=== PATIENT | male | born 1970 | race Caucasian/White ===

== ENCOUNTER 2021-02-04 08:59 | Emergency (ER) | payer BC ==
[~2021-02-04] VITALS: Ht 182.9 cm; Wt 159.0 kg
[2021-02-04] MEDS ORDERED: IV NORMAL SALINE 1,000ML 1,000 ML IV ONE (09:30)
[2021-02-04] MEDS ORDERED: ONDANSETRON PF 4 MG/2 ML VIAL. IVP ONE (09:30)
[2021-02-04] MEDS ORDERED: IOHEXOL 350 MG/ML 100 ML VIAL. IV ONE (09:45)
--- NOTE | 2021-02-04 09:48 | PHYS DOC ---
Past History Past Medical History: Hypertension Past Surgical History: Cholecystectomy, Other Additional Past Surgical Histo: knee surgery Smoking: Non-smoker Alcohol Use: None Drug Use: None General Adult EDM: Chief Complaint: NAUSEA/VOMITING/DIARRHEA HPI: HPI: Patient is a 50-year-old male that presents today with coughing up blood or vomiting blood. Patient states he woke up this morning and he vomited blood, unknown amount he states he is unable to look at the blood because he will pass out patient states that prior to today's incident he has been in normal health. Patient states that he has not seen his primary care doctor Dr. Santana in the last 3 or 4 years, he says he has a history of hypertension for which he gets he takes metoprolol for, he also has an eye issue that is being managed by an software validation engineer on an outpatient basis. Patient states he is also had body aches and pains, denies fever or cough, patient does state that he did have a fluttering feeling in his chest this morning and was concerned with that. Patient has had all of his Covid vaccines and flu shot. Review of Systems: Review of Systems: Constitutional: Denies fever or chills Eyes: Denies change in visual acuity HENT: Denies nasal congestion or sore throat Respiratory: Denies cough or shortness of breath Cardiovascular: Chest flutter GI: Vomiting blood : Denies dysuria Musculoskeletal: Body aches, low back pain Integument: Denies rash Neurologic: Denies headache, focal weakness or sensory changes Endocrine: Denies polyuria or polydipsia Lymphatic: Denies swollen glands Psychiatric: Denies depression or anxiety Current Medications: Current Meds: Current Medications Medications (Trade) Dose Ordered Sig/Esvin Start Time Stop Time Status Last Admin Dose Admin Iohexol (Omnipaque 350 Mg/ml) 100 ml 1X ONCE 02/04/21 09:45 02/04/21 09:46 UNV Ondansetron HCl (Zofran) 4 mg 1X ONCE 02/04/21 09:30 02/04/21 09:31 UNV Sodium Chloride 1,000 ml @ 1,000 mls/hr 1X ONCE 02/04/21 09:30 02/04/21 10:29 UNV Physical Exam: PE: Constitutional: Well developed, obese, mild distress, non-toxic appearance. [] HENT: Normocephalic, atraumatic, bilateral external ears normal, oropharynx moist, no oral exudates, nose normal. [] Eyes: PERRLA, EOMI, conjunctiva normal, no discharge. [] Neck: Normal range of motion, no tenderness, supple, no stridor. [] Cardiovascular:Heart rate regular rhythm, no murmur [] Lungs & Thorax: Bilateral breath sounds clear to auscultation [] Abdomen: Bowel sounds normal, patient has pain with palpation of the right upper quadrant, Skin: Warm, moist, no erythema, no rash. [] Back: Tenderness low back [] Extremities: Trace pedal edema noted, posterior tibialis pulses 2+ bilaterally Neurologic: Alert and oriented X 3, normal motor function, normal sensory function, no focal deficits noted. [] Psychologic: Affect normal, judgement normal, mood anxious. [] Current Patient Data: Labs: Laboratory Tests Test 02/04/21 09:33 02/04/21 11:11 White Blood Count 9.5 x10^3/uL Red Blood Count 4.83 x10^6/uL Hemoglobin 14.4 g/dL Hematocrit 42.9 % Mean Corpuscular Volume 89 fL Mean Corpuscular Hemoglobin 30 pg Mean Corpuscular Hemoglobin Concent 34 g/dL Red Cell Distribution Width 13.4 % Platelet Count 339 x10^3/uL Neutrophils (%) (Auto) 65 % Lymphocytes (%) (Auto) 25 % Monocytes (%) (Auto) 7 % Eosinophils (%) (Auto) 1 % Basophils (%) (Auto) 1 % Neutrophils # (Auto) 6.2 x10^3uL Lymphocytes # (Auto) 2.4 x10^3/uL Monocytes # (Auto) 0.7 x10^3/uL Eosinophils # (Auto) 0.1 x10^3/uL Basophils # (Auto) 0.1 x10^3/uL Sodium Level 143 mmol/L Potassium Level 3.3 mmol/L Chloride Level 106 mmol/L Carbon Dioxide Level 25 mmol/L Anion Gap 12 Blood Urea Nitrogen 8 mg/dL Creatinine 0.9 mg/dL Estimated GFR (Cockcroft-Gault) 89.3 BUN/Creatinine Ratio 9 Glucose Level 125 mg/dL Calcium Level 8.4 mg/dL Total Bilirubin 0.4 mg/dL Aspartate Amino Transf (AST/SGOT) 14 U/L Alanine Aminotransferase (ALT/SGPT) 30 U/L Alkaline Phosphatase 109 U/L Troponin I High Sensitivity 17 ng/L Total Protein 7.5 g/dL Albumin 3.6 g/dL Albumin/Globulin Ratio 0.9 Lipase 73 U/L Urine Collection Type Unknown Urine Color Yellow Urine Clarity Clear Urine pH 6.5 Urine Specific Clare 1.020 Urine Protein 100 mg/dl Urine Glucose (UA) Neg mg/dL Urine Ketones (Stick) Neg mg/dL Urine Blood Neg Urine Nitrite Neg Urine Bilirubin Neg Urine Urobilinogen Dipstick 0.2 mg/dL Urine Leukocyte Esterase Neg Urine RBC 1-2 /HPF Urine WBC 1-4 /HPF Urine Squamous Epithelial Cells None /LPF Urine Bacteria 0 /HPF Urine Mucus Slight /LPF Current Medications Medications (Trade) Dose Ordered Sig/Esvin Route PRN Reason Start Time Stop Time Status Last Admin Dose Admin Sodium Chloride 1,000 ml @ 1,000 mls/hr 1X ONCE IV 02/04/21 09:30 02/04/21 10:29 DC 02/04/21 09:37 Ondansetron HCl (Zofran) 4 mg 1X ONCE IVP 02/04/21 09:30 02/04/21 09:57 DC 02/04/21 10:57 Iohexol (Omnipaque 350 Mg/ml) 100 ml 1X ONCE IV 02/04/21 09:45 02/04/21 09:57 DC 02/04/21 10:13 Ketorolac Tromethamine (Toradol 30mg Vial) 30 mg 1X ONCE IVP 02/04/21 10:45 02/04/21 10:46 DC 02/04/21 10:58 Labetalol HCl (Normodyne) 20 mg 1X ONCE IVP 02/04/21 10:45 02/04/21 10:46 DC 02/04/21 10:58 Vital Signs: Vital Signs Date Time Temp Pulse Resp B/P (MAP) Pulse Ox O2 Delivery O2 Flow Rate FiO2 02/04/21 11:28 90 18 181/127 (145) 100 Room Air 02/04/21 11:22 70 18 124/64 (84) 100 Room Air 02/04/21 10:58 86 193/133 02/04/21 09:56 97.7 100 20 181/125 (143) 94 Room Air EKG: EKG: EKG done at [address] Tinsley at 920 sinus rhythm noted rate of 90 no STEMI OH interval is 156 ms with a QT interval of 457 ms [] Radiology/Procedures: Radiology/Procedures: REASON: chest, abd pain OMNI 350 100CC PROCEDURE: CT ANGIO CHEST W ABD PEL W/ CTA scan of the Chest with Contrast (Pulmonary Embolism protocol) 02/04/2021 Clinical History: Chest pain Technique: After the intravenous administration of 100 cc of Omnipaque 350, contiguous, 0.625 mm axial sections were obtained through the chest. 2 mm axial and 3D MIP coronal and sagittal reconstructed images were obtained. One or more of the following individualized dose reduction techniques were utilized for this study: 1. Automated exposure control. 2. Adjustment of the mA and/or kV according to patient size. 3. Use of iterative reconstruction technique. Findings: No filling defect is seen within the major branches of either pulmonary artery. There is no CT evidence of pulmonary embolism. The heart is mildly enlarged. Scattered atherosclerotic calcification of the thoracic aorta and its branches is seen. The thoracic aorta is mildly tortuous but tapers normally. Minimal dependent subsegmental atelectasis is seen involving both lungs. No area of consolidation, pleural effusion or pneumothorax is seen. Impression: There is no CT evidence of pulmonary embolism. CT scan of the abdomen and pelvis with contrast 02/04/2021 CLINICAL HISTORY: Abdominal pain TECHNIQUE: After the intravenous administration of 100 cc of Omnipaque 350 only, contiguous, 3 mm axial sections were obtained through the abdomen and pelvis. One or more of the following individualized dose reduction techniques were utilized for this study: 1. Automated exposure control. 2. Adjustment of the mA and/or kV according to patient size. 3. Use of iterative reconstruction technique. FINDINGS: Images through the lung bases demonstrate mild cardiomegaly. Minimal dependent subsegmental atelectasis is seen involving both lower lobes. The spleen, pancreas, and adrenal glands are within normal limits. The liver is mildly enlarged measuring 25 cm in length. Decreased attenuation liver parenchyma seen consistent with fatty infiltration. Rounded low-attenuation lesions are seen involving the left lobe of the liver consistent with hepatic cysts. These measure 7 mm in size. Nonobstructing calculi are seen involving the left kidney. These measure 5 to 7 mm . Rounded low-attenuation lesions are seen involving the midpole the right kidney which measure 3 to 5 mm in size. These likely represent cysts. No further imaging evaluation is recommended. Mild atherosclerotic calcification abdominal aorta and its branches is seen. The abdominal aorta tapers normally. Surgical clips are seen within the gallbladder fossa consistent with a cholecystectomy. No free fluid or free air is seen within the abdomen. There is no evidence of bowel obstruction. Air and stool are seen throughout the colon. The appendix is well-visualized and is within normal limits. Images through pelvis demonstrate the urinary bladder distended with urine. No free fluid is seen. Minimal S-shaped curvature of the thoracolumbar spine is seen. Degenerative changes are seen involving mid and lower lumbar spine along with both hips. IMPRESSION: No acute abnormality is seen. Electronically signed by: Jeoavny Ji MD (02/04/2021 11:30 AM) [id number] [] Heart Score: C/O Chest Pain: Yes HEART Score for Chest Pain: HEART Score for Chest Pain Response (Comments) Value History Moderately Suspicious 1 ECG Normal 0 Age >45 - < 65 1 Risk Factors 1 or 2 Risk Factors 1 Troponin < Normal Limit 0 Total 3 Risk Factors: Risk Factors: DM, Current or recent (<one month) smoker, HTN, HLP, family history of CAD, obesity. Risk Scores: Score 0 - 3: 2.5% MACE over next 6 weeks - Discharge Home Score 4 - 6: 20.3% MACE over next 6 weeks - Admit for Clinical Observation Score 7 - 10: 72.7% MACE over next 6 weeks - Early Invasive Strategies Course & Med Decision Making: Course & Med Decision Making Pertinent Labs and Imaging studies reviewed. (See chart for details) 1035 patient blood pressure continues to be elevated currently 185/132, will t reat with 20 of labetalol and give Toradol for pain, patient is driving and does not have a ride home 1330 Patient states pain 2/, patient does state that he has a history of PUD and took medications in the Past. Called [facility] here in [facility] they state the patient has not gotten his prescription refill for his metoprolol since May 2020. When asked patient about this he said as well I might be out on I think I have been taking it on not quite sure. Patient is encouraged to follow-up with Dr. Santana for further management of his blood pressure, will give patient metoprolol 25 mg twice daily 14-day supply, will also give patient Pepcid 20 mg twice daily for a 14-day supply he is encouraged to follow-up with Dr. Max Estrada Disclaimer: Sean Disclaimer: This electronic medical record was generated, in whole or in part, using a voice recognition dictation system. Departure Departure: Impression: Primary Impression: Nausea Additional Impression: Hypertension Qualified Codes: I10 - Essential (primary) hypertension Disposition: HOME / SELF CARE / HOMELESS Condition: STABLE Referrals: CHERYL YAN MD (PCP) Patient Instructions: Hypertension, Nausea and Vomiting Additional Instructions: Metoprolol 25 mg twice daily you only have a 2-week supply Pepcid 20 mg twice daily you only have a 2-week supply Follow-up with Dr. Santana as soon as possible Follow-up with the software validation engineer SINDI for further evaluation of your right eye issues Scripts Famotidine (PEPCID) 20 Mg Tablet 20 MG PO BID for dyspepsia for 14 Days, #28 TAB Prov: EULALIO CORREA CATTLE EXAMINER 02/04/21 Metoprolol Tartrate (METOPROLOL TARTRATE) 25 Mg Tablet 1 TAB PO BID for Hypertension for 14 Days, #28 TAB 1 Refill Prov: EULALIO CORREA CATTLE EXAMINER 02/04/21 EULALIO CORREA CATTLE EXAMINER Feb 04, 2021 09:48
[2021-02-04 10:06] LABS: CALCIUM 8.4 mg/dL (8.5-10.1); CREATININE 0.9 mg/dL (0.7-1.3); GFR 89.3; POTASSIUM 3.3 mmol/L (3.5-5.1)
--- NOTE | 2021-02-04 10:08 | EKG ---
[address] [address] Test Date: 2021-02-04 Test Time: 09:18:07 Pat Name: ANDER CHAN Department: Room: Gender: M Health Policy Nurse: : 1970 Requested By: EULALIO CORREA Order Number: [id number] Reading MD: Beto Viveros Measurements Intervals Matthews Rate: 92 P: 34 ND: 154 QRS: 15 QRSD: 92 T: 79 QT: 370 QTc: 463 Interpretive Statements SINUS RHYTHM Electronically Signed On 02-06-2021 12:51:34 SAMPLE STEAMER by Beto Viveros
[2021-02-04 10:12] LABS: ALBUMIN 3.6 g/dL (3.4-5.0); ALBUMIN/GLOBULIN RATIO 0.9 (1.0-1.7); TOTAL BILIRUBIN 0.4 mg/dL (0.2-1.0); TOTAL PROTEIN 7.5 g/dL (6.4-8.2)
[2021-02-04 10:17] LABS: BASO # 0.1 x10^3/uL (0.0-0.2); BASO % 1 % (0-3); EOS # 0.1 x10^3/uL (0.0-0.7); EOS % 1 % (0-3); HEMATOCRIT 42.9 % (39.0-53.0); HEMOGLOBIN 14.4 g/dL (13.0-17.5); LYMPH # 2.4 x10^3/uL (1.0-4.8); LYMPH % 25 % (24-48); MEAN CORPUSCULAR HEMOGLOBIN 30 pg (25-35); MEAN CORPUSCULAR HGB CONC 34 g/dL (31-37); MEAN CORPUSCULAR VOLUME 89 fL (79-100); MONO # 0.7 x10^3/uL (0.0-1.1); MONO % 7 % (0-9); NEUT # 6.2 x10^3uL (1.8-7.7); NEUT % 65 % (31-73); PLATELET COUNT 339 x10^3/uL (140-400); RED BLOOD COUNT 4.83 x10^6/uL (4.30-5.70); RED CELL DISTRIBUTION WIDTH 13.4 % (11.5-14.5); WHITE BLOOD COUNT 9.5 x10^3/uL (4.0-11.0)
[2021-02-04] MEDS ORDERED: KETOROLAC 30 MG/ML VIAL. IVP ONE (10:45)
[2021-02-04] MEDS ORDERED: LABETALOL 20 MG/4 ML DISP.SYRIN. IVP ONE (10:45)
--- NOTE | 2021-02-04 11:32 | RAD ---
CTA scan of the Chest with Contrast (Pulmonary Embolism protocol) 02/04/2021 Clinical History: Chest pain Technique: After the intravenous administration of 100 cc of Omnipaque 350, contiguous, 0.625 mm axia l sections were obtained through the chest. 2 mm axial and 3D MIP coronal and sagittal reconstructed images were obtained. One or more of the following individualized dose reduction techniques were utilized for this study: 1. Automated exposure control. 2. Adjustment of the mA and/or kV according to patient size. 3. Use of iterative reconstruction technique. Findings: No filling defect is seen within the major branches of either pulmonary artery. There is n o CT evidence of pulmonary embolism. The heart is mildly enlarged. Scattered atherosclerotic calcific ation of the thoracic aorta and its branches is seen. The thoracic aorta is mildly tortuous but taper s normally. Minimal dependent subsegmental atelectasis is seen involving both lungs. No area of consolidation, pl eural effusion or pneumothorax is seen. Impression: There is no CT evidence of pulmonary embolism. CT scan of the abdomen and pelvis with contrast 02/04/2021 CLINICAL HISTORY: Abdominal pain TECHNIQUE: After the intravenous administration of 100 cc of Omnipaque 350 only, contiguous, 3 mm axi al sections were obtained through the abdomen and pelvis. One or more of the following individualized dose reduction techniques were utilized for this study: 1. Automated exposure control. 2. Adjustment of the mA and/or kV according to patient size. 3. Use of iterative reconstruction technique. FINDINGS: Images through the lung bases demonstrate mild cardiomegaly. Minimal dependent subsegmental atelectasis is seen involving both lower lobes. The spleen, pancreas, and adrenal glands are within normal limits. The liver is mildly enlarged measu ring 25 cm in length. Decreased attenuation liver parenchyma seen consistent with fatty infiltration. Rounded low-attenuation lesions are seen involving the left lobe of the liver consistent with hepati c cysts. These measure 7 mm in size. Nonobstructing calculi are seen involving the left kidney. These measure 5 to 7 mm . Rounded low-attenuation lesions are seen involving the midpole the right kidney which measure 3 to 5 mm in size. These likely represent cysts. No further imaging evaluation is recom mended. Mild atherosclerotic calcification abdominal aorta and its branches is seen. The abdominal aorta tape rs normally. Surgical clips are seen within the gallbladder fossa consistent with a cholecystectomy. No free fluid or free air is seen within the abdomen. There is no evidence of bowel obstruction. Air and stool are seen throughout the colon. The appendix is well-visualized and is within normal limits. Images through pelvis demonstrate the urinary bladder distended with urine. No free fluid is seen. Mi nimal S-shaped curvature of the thoracolumbar spine is seen. Degenerative changes are seen involving mid and lower lumbar spine along with both hips. IMPRESSION: No acute abnormality is seen. Electronically signed by: Jeovany Ji MD (02/04/2021 11:30 AM) [id number]
[2021-02-04 13:10] LABS: BACTERIA,URINE 0 /HPF (0-FEW); BILIRUBIN,URINE NEG (NEG); CLARITY,URINE CLEAR; COLOR,URINE YELLOW; GLUCOSE,URINE NEG (NEG); NITRITE,URINE NEG (NEG); UROBILINOGEN,URINE 0.2 mg/dL (0.2 mg/dL)
[2021-02-04 13:34] VITALS: BP 181/128
[2021-02-04] MEDS ORDERED: METO25TA4 PO (13:41)
[2021-02-04] MEDS ORDERED: FAMO-63 PO (13:41)
== END 2021-02-04 13:55 | disposition home or self-care (01) ==
LOC: ER 08:59
DX: I10 Essential (primary) hypertension (principal); R11.0 Nausea; R04.2 Hemoptysis; M54.59 Other low back pain; R10.11 Right upper quadrant pain; Z90.49 Acquired absence of other specified parts of digestive tract
CPT/HCPCS: 36415; 71275; 74177; 80053; 81001; 83690; 84484; 85025; 93005; 96361; 96374; 96375; 99285; J1885; J2405; J3490; J7030; Q9967

== ENCOUNTER → 2021-04-03 | Outpatient (CLI) | payer OTHER ==
[~2021-04-03] MED LIST: FAMO-63 PO; METO25TA4 PO
--- NOTE | 2021-04-03 09:59 | RAD ---
INDICATION: Reason: short of breath, cough, uri / Spl. Instructions: / History: COMPARISON: February 04, 2021 FINDINGS: 2 view of chest obtained. Cardiomediastinal silhouette is similar to prior. No definite focal airspace consolidation or pulmonary edema. There is a nodule of the left lower lung measuring approximately 9 mm IMPRESSION: * No focal airspace consolidation. * 9 mm left lower lung nodule. Follow-up could be obtained per Fleischner criteria. Fleischner Society recommendations for solitary solid lung nodule follow up.: In a low risk patient: <6mm - No follow up required. 6-8mm - 6-[address], then CT at 18-24 months. >8mm - CT at 3 months, PET/CT or tissue sampling. In a high risk patient (history of smoking or other known risk factors): <6mm - Follow up CT at 12 months. 6-8mm - 6-[address], then CT at 18-24 months. >8mm - CT at 3 months, PET/CT or tissue sampling. Fleischner Society recommendations for multiple solid lung nodule follow up.: In a low risk patient: <6mm - No follow up required. 6-8mm - 3-[address], then CT at 18-24 months. >8mm - CT at 3-6 months, then at 18-24 months. PET/CT or tissue sampling based on most suspicious no dule. In a high risk patient (history of smoking or other known risk factors): <6mm - Follow up CT at 12 months. 6-8mm - 3-[address], then CT at 18-24 months. >8mm - CT at 3-6 months, PET/CT or tissue sampling option based on most suspicious nodule. Electronically signed by: Cameron Atkinson MD (04/03/2021 9:56 AM) [id number]
== END ==
LOC: RAD 09:36
PROVIDERS: ATTEND Physician Assistant
DX: R06.09 Other forms of dyspnea (principal); R05.9 Cough, unspecified; R06.02 Shortness of breath
CPT/HCPCS: 71046

== ENCOUNTER → 2021-06-13 | Outpatient (CLI) | payer BC ==
--- NOTE | 2021-06-13 12:39 | RAD ---
XR CHEST 2V History: Reason: COUGH AND FEVER X 1 WEEK / Spl. Instructions: / History: Comparison: April 03, 2021 Findings: Mild ill-defined left basilar opacities. Impression: 1. Mild ill-defined left basilar opacities, may represent atelectasis or pneumonia. If persistent cl inical concern, recommend follow-up. Electronically signed by: Farooq Kirby DO (06/13/2021 12:36 PM) [id number]
== END ==
LOC: RAD 12:12
PROVIDERS: ATTEND Nurse Practitioner Family
DX: R50.9 Fever, unspecified (principal); R05.9 Cough, unspecified
CPT/HCPCS: 71046